=== PATIENT | female | born 2000 | race Caucasian/White ===

== ENCOUNTER 2023-12-10 20:09 | Emergency (ER) | payer MEDICAID ==
[~2023-12-10] VITALS: Ht 170.2 cm; Wt 57.0 kg
[2023-12-10 20:12] VITALS: BP 107/49; RESP 16; TEMP 98.6; O2SAT 100
[2023-12-10 20:13] VITALS: PULSE 82
[2023-12-10] MEDS ORDERED: IBUPROFEN 600MG TABLET PO ONE (22:00)
== END 2023-12-11 01:11 | disposition home or self-care (01) ==
LOC: ER 20:09
DX: S90.32XA Contusion of left foot, initial encounter (principal); X58.XXXA Exposure to other specified factors, initial encounter; Y93.89 Activity, other specified; Y92.89 Other specified places as the place of occurrence of the external cause; Y99.8 Other external cause status
CPT/HCPCS: 73630; 99283; Z7610